=== PATIENT | male | born 1980 | race Caucasian/White ===

== ENCOUNTER 2017-07-16 13:02 | Emergency (ER) | payer OTHER ==
[2017-07-16 13:19] LABS: Absolute Lymphocytes (CBC) 1.5 K/uL (0.7-4.9); Absolute Monocytes 0.6 K/uL (0.1-1.3); Absolute Neutrophil 5.3 K/uL (1.8-8.0); Basophils % 0.1 % (0-1.3); Hematocrit 43.5 % (39.6-49.0); Lymphocytes % 20.9 % (15.3-44.8); MCH 30.4 pg (27.0-35.0); MCV 90.4 fL (80-100); MPV 8.1 fL (7.6-11.3); Monocytes % 7.6 % (3.3-12.3); RBC Red Blood Cell Count 4.81 M/uL (4.33-5.43)
[2017-07-16 13:29] LABS: Potassium 3.4 mEq/L (3.6-5.0)
--- NOTE | 2017-07-16 13:58 | RAD REPORT ---
EXAM DESCRIPTION: CT - Head Brain Wo Cont - 07/16/2017 1:21 pm CLINICAL HISTORY: Headache COMPARISON: None. TECHNIQUE: Computed axial tomography of the head was obtained. IV contrast was not requested. All CT scans are performed using dose optimization technique as appropriate and may include automated exposure control or mA/KV adjustment according to patient size. FINDINGS: An intracranial bleed is not seen . The ventricles are normal in caliber. No extra-axial fluid collection is noted. Fluid within the sinuses/ mastoids is not seen. IMPRESSION: No acute intracranial abnormality is seen. If patient's symptoms persist MRI of the bra in would be recommended.
--- NOTE | 2017-07-16 14:47 | EKG ---
Test Date: 2017-07-16 Test Time: 13:30:17 Roster Clerk: ISH MEASUREMENT RESULTS: Intervals: Rate: 101 MO: 174 QRSD: 108 QT: 356 QTc: 461 [place]: P: 72 MO: 174 QRS: 81 T: 47 INTERPRETIVE STATEMENTS: Sinus tachycardia Otherwise normal ECG Compared to ECG 11/18/2016 13:01:09 ST (T wave) deviation no longer present Electronically Signed On 07-16-17 14:46:39 CDT by Darvin Rondon
--- NOTE | 2017-07-16 15:06 | EDPHYS ---
Physician Documentation [facility] Name: Bud Espinal Age: 37 yrs Sex: Male : 1980 Arrival Date: 07/16/2017 Time: 13:03 Bed 4 Private MD: ED Physician Ochoa Ruelas HPI: 07/16 14:30 This 37 yrs old Male presents to ER via EMS with complaints of Seizure. rn 14:30 The patient presents after having a single isolated seizure. Character of seizure(s): rn Loss of consciousness: it is not known if the patient experienced loss of consciousness, Motor activity: generalized, Circulation: the patient did not experience evidence of pulse disturbance. Seizure onset: just prior to arrival. The patient has experienced similar episodes in the past. The patient has not recently seen a physician. Reports seizure prior to arrival, witnessed, unknown duration, single seizure, has hx of seizures, no trauma, when EMS arrived was in bathroom/shower, reports feeling better with time, felt fine prior to seizure, taking medication but cannot tell me which one. No fever/chest pain/vomiting/diarrhea.. Historical: - Allergies: 13:06 Ceclor; sg - Home Meds: 13:06 Clonazepam Oral as needed [Active]; sg 13:16 levetiracetam oral oral [Active]; sg - PMHx: 13:06 Anxiety; Seizures; sg - PSHx: 13:06 R knee sx; wisdom teeth removal; sg - Immunization history:: Adult Immunizations up to date. - Social history:: Smoking status: Patient/guardian denies using tobacco. - Family history:: not pertinent. - Hospitalizations: : No recent hospitalization is reported. ROS: 14:30 Constitutional: Negative for fever, chills, and weight loss, Eyes: Negative for injury, rn pain, redness, and discharge, Neck: Negative for injury, pain, and swelling, Cardiovascular: Negative for chest pain, palpitations, and edema, Respiratory: Negative for shortness of breath, cough, wheezing, and pleuritic chest pain, Abdomen/GI: Negative for abdominal pain, nausea, vomiting, diarrhea, and constipation, Back: Negative for injury and pain, MS/Extremity: Negative for injury and deformity, Skin: Negative for injury, rash, and discoloration, Neuro: Negative for headache, weakness, numbness, tingling Exam: 14:30 Constitutional: This is a well developed, well nourished patient who is awake, alert, rn and in no acute distress. Head/Face: Normocephalic, atraumatic. Eyes: Pupils equal round and reactive to light, extra-ocular motions intact. Lids and lashes normal. Conjunctiva and sclera are non-icteric and not injected. Cornea within normal limits. Periorbital areas with no swelling, redness, or edema. Neck: Trachea midline, no thyromegaly or masses palpated, and no cervical lymphadenopathy. Supple, full range of motion without nuchal rigidity, or vertebral point tenderness. No Meningismus. Chest/axilla: Normal chest wall appearance and motion. Nontender with no deformity. No lesions are appreciated. Cardiovascular: Regular rate and rhythm with a normal S1 and S2. No gallops, murmurs, or rubs. Normal PMI, no JVD. No pulse deficits. Respiratory: Lungs have equal breath sounds bilaterally, clear to auscultation and percussion. No rales, rhonchi or wheezes noted. No increased work of breathing, no retractions or nasal flaring. Abdomen/GI: Soft, non-tender, with normal bowel sounds. No distension or tympany. No guarding or rebound. No evidence of tenderness throughout. Skin: Warm, dry with normal turgor. Normal color with no rashes, no lesions, and no evidence of cellulitis. MS/ Extremity: Pulses equal, no cyanosis. Neurovascular intact. Full, normal range of motion. Equal circumference. Neuro: Awake, post-ictal, GCS 15, oriented to person, place, time, and situation. Cranial nerves II-XII grossly intact. Motor strength 5/5 in all extremities. Sensory grossly intact. Vital Signs: 13:07 Resp 16 S; Temp 99.5(O); sg 13:07 BP 157 / 85; Pulse 112; Resp 18; Pulse Ox 97% ; Pain 0/10; sv MDM: 13:03 Patient medically screened. rn 15:04 Differential diagnosis: seizure. Data reviewed: vital signs, nurses notes, lab test rn result(s), radiologic studies, CT scan, and as a result, I will. Counseling: I had a detailed discussion with the patient and/or guardian regarding: the historical points, exam findings, and any diagnostic results supporting the discharge/admit diagnosis, lab results, radiology results, the need for outpatient follow up, to return to the emergency department if symptoms worsen or persist or if there are any questions or concerns that arise at home. Response to treatment: the patient's condition has returned to base line, and as a result, I will discharge patient. Special discussion: I discussed with the patient/guardian in detail that at this point there is no indication for admission to the hospital. It is understood, however, that if the symptoms persist or worsen the patient needs to return immediately for re-evaluation. 07/16 13:04 Order name: CBC with Diff rn 07/16 13:04 Order name: Basic Metabolic Panel rn 07/16 13:04 Order name: CT Head Brain wo Cont rn 07/16 13:22 Order name: CBC with Automated Diff; Complete Time: 14:23 EDMS 07/16 13:30 Order name: Basic Metabolic Panel; Complete Time: 14:23 EDMS 07/16 15:13 Order name: Urine Dipstick--Ancillary (enter results) 07/16 13:04 Order name: IV Start; Complete Time: 13:05 rn 07/16 13:04 Order name: Glucose Level; Complete Time: 13:14 rn 07/16 13:04 Order name: EKG; Complete Time: 13:05 rn 07/16 13:04 Order name: EKG - Nurse/Tech; Complete Time: 15:14 rn 07/16 13:58 Order name: CT; Complete Time: 14:23 EDMS Administered Medications: 13:06 Drug: NS 0.9% 1000 ml Route: IV; Rate: 1000 ml; Site: right antecubital; Point of Care Testing: Blood Glucose: 13:14 Blood Glucose: 130 mg/dL; dh3 Ranges: Critical Glucose Levels:Adult <50 mg/dl or >400 mg/dl <40 mg/dl or >180 mg/dl Disposition: 07/16/17 15:05 Discharged to Home. Impression: Epilepsy and recurrent seizures. - Condition is Stable. - Discharge Instructions: Seizure, Adult. - Medication Reconciliation Form, Thank You Letter, Antibiotic Education, Prescription Opioid Use form. - Follow up: Private Physician; When: As needed; Reason: Recheck today's complaints, Re-evaluation by your physician. - Problem is new. - Symptoms have improved. Signatures: Dispatcher [employer] Caroline Trejo RN RN Bernard Avila RN RN sg Nieto, Roman, MD MD rn Page, Corey, PA PA cp
--- NOTE | 2017-07-16 15:06 | ER ---
Nurse's Notes [facility] Name: Bud Espinal Age: 37 yrs Sex: Male : 1980 Arrival Date: 07/16/2017 Time: 13:03 Bed 4 Private MD: Diagnosis: Epilepsy and recurrent seizures Presentation: 07/16 13:08 Presenting complaint: EMS states: pt family reports seizure like activity, has a hx of sg seizures but hasn't had one in what he thinks was 2 months ago, takes two medications for seizures, is AA\\T\\OX4, reports feeling "groggy". Transition of care: patient was not received from another setting of care. Onset of symptoms was July 16, 2017. Care prior to arrival: Medication(s) given: Normal saline infusion, 500 mL, IV initiated. 18 GA, in the right antecubital area. Activity prior to arrival: seizure. 13:08 Method Of Arrival: EMS: [facility] sg 13:08 Acuity: HEBER 3 sg Historical: - Allergies: 13:06 Ceclor; sg - Home Meds: 13:06 Clonazepam Oral as needed [Active]; sg 13:16 levetiracetam oral oral [Active]; sg - PMHx: 13:06 Anxiety; Seizures; sg - PSHx: 13:06 R knee sx; wisdom teeth removal; sg - Immunization history:: Adult Immunizations up to date. - Social history:: Smoking status: Patient/guardian denies using tobacco. - Family history:: not pertinent. - Hospitalizations: : No recent hospitalization is reported. Screenin:08 Abuse screen: Denies threats or abuse. Denies injuries from another. Nutritional sv screening: No deficits noted. Tuberculosis screening: No symptoms or risk factors identified. Fall Risk No fall in past 12 months (0 pts). Secondary diagnosis (15 points) seizures, IV access (20 points). Ambulatory Aid- None/Bed Rest/Nurse Assist (0 pts). Gait- Normal/Bed Rest/Wheelchair (0 pts) Mental Status- Oriented to own ability (0 pts). Total Barboza Fall Scale indicates Low Risk Score (25-44 pts). Fall prevention measures have been instituted. Side Rails Up X 2 Placed close to Nursing Station Frequent Obs/Assesments occuring As available Patient and Family Educated on Fall Prevention Program and strategies. Assessment: 13:16 General: Appears in no apparent distress. comfortable, well groomed, well developed, sg well nourished, Behavior is calm, cooperative, appropriate for age. Pain: Denies pain. Neuro: Level of Consciousness is awake, alert, obeys commands, Oriented to person, place, time, Small Offset Printer are equal bilaterally Moves all extremities. Speech is normal, Facial symmetry appears normal, Reports "groggy". Cardiovascular: Heart tones S1 S2 present Capillary refill is brisk in bilateral fingers Patient's skin is warm and dry. Respiratory: Airway is patent Respiratory effort is even, unlabored, Respiratory pattern is regular, symmetrical. GI: Abdomen is flat, non-distended, Bowel sounds present X 4 quads. : No signs and/or symptoms were reported regarding the genitourinary system. EENT: No signs and/or symptoms were reported regarding the EENT system. Derm: Skin is intact, is healthy with good turgor, Skin is dry, Skin is red, Skin temperature is warm. Musculoskeletal: Circulation, motion, and sensation intact. Range of motion: intact in all extremities. Vital Signs: 13:07 Resp 16 S; Temp 99.5(O); sg 13:07 BP 157 / 85; Pulse 112; Resp 18; Pulse Ox 97% ; Pain 0/10; sv ED Course: 13:03 Patient arrived in ED. rn 13:03 Ochoa Ruelas MD is Attending Physician. rn 13:05 Bernard Patel, DEBORAH is Primary Nurse. sg 13:07 Arm band placed on. sg 13:08 Patient has correct armband on for positive identification. Bed in low position. Call sv light in reach. Side rails up X2. Seizure precautions initiated. Pulse ox on. NIBP on. Head of bed elevated. 13:11 Triage completed. sg 13:14 Initial lab(s) drawn, by me, sent to lab. dh3 13:[address] via stretcher. sv 13:[address] via stretcher. Patient moved to radiology. jg1 13:26 Patient moved back from CT. sg Administered Medications: 13:06 Drug: NS 0.9% 1000 ml Route: IV; Rate: 1000 ml; Site: right antecubital; sv Point of Care Testing: Blood Glucose: 13:14 Blood Glucose: 130 mg/dL; dh3 Ranges: Outcome: 15:05 Discharge ordered by MD. bacon 15:27 Patient left the ED. cp Signatures: Caroline Lin RN RN sv Gay, Steven, RN RN sg Garcia, Jessica jg1 Nieto, Roman, MD MD rn Page, Corey, PA PA cp Herrera, Deanna 3
[2017-07-16 15:52] LABS: Urine Blood NEGATIVE (NEG); Urine Glucose NEGATIVE (NEG); Urine Protein NEGATIVE (NEG)
== END 2017-07-16 15:27 | disposition home or self-care (01) ==
LOC: ER 13:02
DX: G40.909 Epilepsy, unspecified, not intractable, without status epilepticus (principal); F41.9 Anxiety disorder, unspecified
CPT/HCPCS: 36415; 70450; 80048; 81003; 82962; 85025; 93005; 99284

== ENCOUNTER 2017-12-14 12:17 | Emergency (ER) | payer OTHER ==
[2017-12-14] MEDS ORDERED: ONDANSETRON 4 MG/2 ML VIAL ONE (14:07)
[2017-12-14] MEDS ORDERED: FENTANYL CITR 100 MCG/2 ML ONE ×2 (14:07→17:00)
[2017-12-14] MEDS ORDERED: MUPIROCIN 2% OINT 22GM TUBE TOP ONE (14:15)
[2017-12-14] MEDS ORDERED: TETANUS & DIPHTHERIA TOX,ADULT 0.5 ML VIAL ONE (14:15)
[2017-12-14] MEDS ORDERED: NA CHLORIDE 0.9% 1,000 ML ONE (14:16)
[2017-12-14 14:19] LABS: Absolute Lymphocytes (CBC) 0.7 K/uL (0.7-4.9); Absolute Monocytes 0.3 K/uL (0.1-1.3); Absolute Neutrophil 2.6 K/uL (1.8-8.0); Basophils % 0.9 % (0-1.3); Hematocrit 41.9 % (39.6-49.0); Lymphocytes % 19.4 % (15.3-44.8); MCH 32.5 pg (27.0-35.0); MCV 94.6 fL (80-100); MPV 7.9 fL (7.6-11.3); Monocytes % 9.4 % (3.3-12.3); RBC Red Blood Cell Count 4.43 M/uL (4.33-5.43)
[2017-12-14 14:33] LABS: ALT/SGPT 29 U/L (12-78); AST/SGOT 44 U/L (15-37); Albumin 4.1 g/dL (3.4-5.0); Alkaline Phosphatase 56 U/L (45-117); BUN Blood Urea Nitrogen 8 mg/dL (7-18); Bicarbonate 30 mmol/L (21-32); Bilirubin Total 0.6 mg/dL (0.2-1.0); Glucose Level 100 mg/dL (74-106); Potassium 4.1 mmol/L (3.5-5.1); Protein, Total 7.7 g/dL (6.4-8.2); Sodium Level 139 mmol/L (136-145)
--- NOTE | 2017-12-14 15:16 | RAD REPORT ---
EXAM DESCRIPTION: RAD - Ankle Right 3 View - 12/14/2017 2:34 pm CLINICAL HISTORY: Ankle pain, history of fracture COMPARISON: None. FINDINGS: Prominent soft tissue swelling surrounds the ankle. History indicates ankle fracture will not otherwise specified as to date of recurrence. No gross fracture deformity of the distal tibia or fibula seen. There is irregular bone along the medial and posterior margin of the talus. This would b e an unusual location but fracture is not excluded. No prior imaging of this region. No plantar or Achilles spur. An acute calcaneus process is not suspected. No large joint effusion. No foreign body. IMPRESSION: Suspected fracture along the posteromedial margin of the talus. Fracture is difficult to fully evaluate and is poorly seen on the frontal and oblique projections. As clinical findings warrant, thin section CT imaging of the ankle could be performed for further asses sment. Soft tissue swelling surrounding the ankle joint.
--- NOTE | 2017-12-14 15:18 | RAD REPORT ---
EXAM DESCRIPTION: RAD - Foot Right 3 View - 12/14/2017 2:34 pm CLINICAL HISTORY: Ankle pain, history of fracture not otherwise specified. COMPARISON: None. FINDINGS: No fracture, dislocation or periosteal reaction involving the bones of the foot. Posterior talus finding is detailed on the ankle report. No plantar spur. Calcifications along the dorsal mildred in anterior talus could be related to soft tissue injury or possible bone avulsion. No air or foreign body in the soft tissues. IMPRESSION: Posterior talus abnormality detailed on ankle report. There may be additional cortical d isruption along the anterior dorsal margin of the calcaneus. Prominent soft tissue swelling over the dorsum of the foot. No other acute bone finding.
--- NOTE | 2017-12-14 15:19 | RAD REPORT ---
EXAM DESCRIPTION: VAS - Extremity Venous Uni Ltd - 12/14/2017 3:13 pm CLINICAL HISTORY: Leg pain and swelling, recent fracture COMPARISON: None. TECHNIQUE: Real-time sonographic evaluation of the right lower extremity deep venous systems was per formed. FINDINGS: Normal compressibility, flow augmentation, phasic flow and spontaneous flow are identified in the right lower extremity common femoral, superficial femoral, popliteal and posterior tibial vei ns. No intraluminal filling defects seen. IMPRESSION: No DVT in the right lower extremity.
--- NOTE | 2017-12-14 15:32 | RAD REPORT ---
EXAM DESCRIPTION: RAD - Tib Fib Right - 12/14/2017 2:34 pm CLINICAL HISTORY: Leg pain, history of fracture date unknown COMPARISON: None. FINDINGS: No fracture is identified. There is no dislocation or periosteal reaction noted. No acute or suspicious bony finding. Posterior talus finding is detailed on separate ankle report. No foreign body seen. There is soft tissue swelling around the ankle. IMPRESSION: No acute tib-fib finding. Soft tissue swelling around the ankle. Posterior talus finding is separately detailed.
--- NOTE | 2017-12-14 16:21 | RAD REPORT ---
EXAM DESCRIPTION: CT - Ankle Right Wo Con - 12/14/2017 4:06 pm CLINICAL HISTORY: pain COMPARISON: Tib Fib Right dated 12/14/2017; Foot Right 3 View dated 12/14/2017; Ankle Right 3 View benji ed 12/14/2017 FINDINGS: A fracture is seen involving the posterior aspect of the talus medially the fracture exten ds to minimal with the articular surface of the posterior subtalar joint. The bony fragment in the ta anny is 1-2 mm displaced with mild comminution along the fracture site. Subtalar dislocation is not se en. In addition, there are small avulsion fracture fragments noted involving the anterior process of the calcaneus, the dorsal aspect of the talar neck and the distal medial and lateral malleoli. Significan t soft tissue swelling and edema about the ankle is present. IMPRESSION: Acute ankle fracture as detailed above.
--- NOTE | 2017-12-14 16:56 | EDPHYS ---
Physician Documentation [facility] Name: Bud Espinal Age: 37 yrs Sex: Male : 1980 Arrival Date: 12/14/2017 Time: 12:19 Bed 6 Private MD: Pio Ortiz S ED Physician Robin Raman HPI: 12/14 13:45 This 37 yrs old Male presents to ER via Wheelchair with complaints of Wound rebecca Check. 13:46 Patient presents to ED for recheck of: fracture 5 days ago. The affected area is on the rebecca lateral aspect of right calf, right ankle, lateral aspect of right foot, right Achilles, right heel, medial aspect of right calf, medial aspect of right foot, right guzman, anterior aspect of right ankle and dorsum of right foot. Previous treatment: The patient was initially treated 5 day(s) ago, the care was rendered at [facility]. Progress: The patient reports decreased. The patient presents with decreased range of motion, an injury, pain, swelling, tenderness. Context: resulted from a direct blow, the patient is not able to bear weight, the patient is not able to ambulate, Problem is a result from a previous injury: No. Historical: - Allergies: 12:47 Ceclor; ph - Home Meds: 12:47 levetiracetam Oral [Active]; Clonazepam Oral as needed [Active]; ph - PMHx: 12:47 Anxiety; Seizures; ph - PSHx: 12:47 R knee sx; wisdom teeth removal; ph - Immunization history:: Adult Immunizations unknown. - Social history:: Smoking status: Patient/guardian denies using tobacco. - Ebola Screening: : No symptoms or risks identified at this time. - Family history:: not pertinent. ROS: 13:46 Constitutional: Negative for fever, chills, and weight loss, Eyes: Negative for injury, rebecca pain, redness, and discharge, ENT: Negative for injury, pain, and discharge, Neck: Negative for injury, pain, and swelling, Cardiovascular: Negative for chest pain, palpitations, and edema, Respiratory: Negative for shortness of breath, cough, wheezing, and pleuritic chest pain, Abdomen/GI: Negative for abdominal pain, nausea, vomiting, diarrhea, and constipation, Back: Negative for injury and pain, : Negative for injury, bleeding, discharge, and swelling, Skin: Negative for injury, rash, and discoloration, Neuro: Negative for headache, weakness, numbness, tingling, and seizure, Psych: Negative for depression, anxiety, suicide ideation, homicidal ideation, and hallucinations, Allergy/Immunology: Negative for hives, rash, and allergies, Endocrine: Negative for neck swelling, polydipsia, polyuria, polyphagia, and marked weight changes. 13:46 MS/extremity: Positive for pain, swelling, tenderness, warmth, of the right ankle, lateral aspect of right foot, medial aspect of right foot, right guzman, anterior aspect of right ankle and dorsum of right foot. Exam: 13:46 Constitutional: This is a well developed, well nourished patient who is awake, alert, rebecca and in no acute distress. Head/Face: Normocephalic, atraumatic. Eyes: Pupils equal round and reactive to light, extra-ocular motions intact. Lids and lashes normal. Conjunctiva and sclera are non-icteric and not injected. Cornea within normal limits. Periorbital areas with no swelling, redness, or edema. ENT: Nares patent. No nasal discharge, no septal abnormalities noted. Tympanic membranes are normal and external auditory canals are clear. Oropharynx with no redness, swelling, or masses, exudates, or evidence of obstruction, uvula midline. Mucous membranes moist. Neck: Trachea midline, no thyromegaly or masses palpated, and no cervical lymphadenopathy. Supple, full range of motion without nuchal rigidity, or vertebral point tenderness. No Meningismus. Chest/axilla: Normal chest wall appearance and motion. Nontender with no deformity. No lesions are appreciated. Cardiovascular: Regular rate and rhythm with a normal S1 and S2. No gallops, murmurs, or rubs. Normal PMI, no JVD. No pulse deficits. Respiratory: Lungs have equal breath sounds bilaterally, clear to auscultation and percussion. No rales, rhonchi or wheezes noted. No increased work of breathing, no retractions or nasal flaring. Abdomen/GI: Soft, non-tender, with normal bowel sounds. No distension or tympany. No guarding or rebound. No evidence of tenderness throughout. Back: No spinal tenderness. No costovertebral tenderness. Full range of motion. Male : Normal genitalia with no discharge or lesions. Skin: Warm, dry with normal turgor. Normal color with no rashes, no lesions, and no evidence of cellulitis. Neuro: Awake and alert, GCS 15, oriented to person, place, time, and situation. Cranial nerves II-XII grossly intact. Motor strength 5/5 in all extremities. Sensory grossly intact. Cerebellar exam normal. Normal gait. Psych: Awake, alert, with orientation to person, place and time. Behavior, mood, and affect are within normal limits. 13:46 Musculoskeletal/extremity: ROM: limited active range of motion due to pain, limited passive range of motion due to pain, in the right ankle, lateral aspect of right foot, medial aspect of right foot, anterior aspect of right ankle and dorsum of right foot, Pulses: noted to be 4+ in the right posterior tibial artery and right dorsalis pedis artery, Sensation intact. Compartment Syndrome exam of affected extremity: is normal. DVT Exam: negative Homans' sign noted on exam, no appreciated bluish discoloration, pain, swelling, tenderness, erythema, increased warmth, that is moderate, of the right leg, of the right ankle, lateral aspect of right foot, anterior aspect of right ankle and dorsum of right foot. Vital Signs: 12:47 BP 140 / 92; Pulse 72; Resp 18; Temp 98.5; Pulse Ox 99% on R/A; Weight 81.65 kg; Height ph 5 ft. 9 in. (175.26 cm); Pain 8/10; 14:00 BP 122 / 76; Pulse 67; Resp 16; Pulse Ox 100% on R/A; hb 15:00 BP 128 / 79; Pulse 69; Resp 15; Pulse Ox 100% on R/A; hb 16:00 BP 123 / 74; Pulse 64; Resp 15; Pulse Ox 100% on R/A; hb 17:00 BP 118 / 68; Pulse 62; Resp 15; Pulse Ox 100% on R/A; hb 17:34 BP 122 / 76; Pulse 64; Resp 18; Temp 97.9; Pulse Ox 100% on R/A; ph 12:47 Body Mass Index 26.58 (81.65 kg, 175.26 cm) ph MDM: 12:[address] [facility] 13:50 Data reviewed: vital signs, nurses notes, lab test result(s), radiologic studies. [facility] 12/14 13:45 Order name: CBC with Diff; Complete Time: 15:40 [facility] 12/14 13:45 Order name: Comprehensive Metabolic Panel; Complete Time: 15:40 [facility] 12/14 13:45 Order name: Foot Right 3 View XRAY; Complete Time: 15:40 [facility] 12/14 13:45 Order name: Ankle Right 3 View XRAY; Complete Time: 15:40 [facility] 12/14 13:45 Order name: Tib Fib Right XRAY; Complete Time: 15:40 [facility] 12/14 14:19 Order name: US Extremity Venous Unilateral Ltd; Complete Time: 15:40 [facility] 12/14 13:45 Order name: Wound Care: bactroban oint; Complete Time: 14:19 [facility] 12/14 15:46 Order name: Ankle Right Wo Con; Complete Time: 16:50 EDMS 12/14 15:57 Order name: Ankle Splint: Orthoglass: Posterior; Complete Time: 16:58 [facility] 12/14 15:57 Order name: Crutches; Complete Time: 16:58 [facility] 12/14 15:57 Order name: Ice pack; Complete Time: 16:28 [facility] Administered Medications: 14:09 Drug: fentaNYL (PF) 25 mcg Route: IVP; Site: right antecubital; hb 14:09 Drug: Zofran 4 mg Route: IVP; Site: right antecubital; hb 14:19 Drug: NS 0.9% 1000 ml Route: IV; Rate: 1 bolus; Site: right antecubital; hb 14:19 Drug: Tetanus-Diphtheria Toxoid Adult 0.5 ml {Bran Mixer: [employer]. Exp: 01/13/2020. Lot #: [id number]. } Route: IM; Site: right deltoid; 15:00 Drug: fentaNYL (PF) 25 mcg Route: IVP; Site: right antecubital; sg 16:58 Drug: fentaNYL (PF) 25 mcg Route: IVP; Site: right antecubital; hb Disposition: 12/14/17 16:55 Discharged to Home. Impression: Displaced avulsion fracture (chip fracture) of right talus - calcaneus and distal medial and lateral malleoli avulsion fractures, Dislocation of right ankle joint - reduced 5 days ago. - Condition is Stable. - Discharge Instructions: Ankle Dislocation, Ankle Fracture, Ankle Dislocation, Ybor-ll-Cgbu, Ankle Pain. - Prescriptions for Ibuprofen 600 mg Oral Tablet - take 1 tablet by ORAL route every 8 hours As needed take with food; 21 tablet. Tylenol- Codeine #3 300-30 mg Oral Tablet - take 2 tablet by ORAL route every 6 hours As needed; 30 tablet. - Medication Reconciliation Form, Thank You Letter, Antibiotic Education, Prescription Opioid Use form. - Follow up: Pio Ortiz; When: 2 - 3 days; Reason: Recheck today's complaints, Continuance of care, Re-evaluation by your physician. Follow up: Sony Allen; When: 2 - 3 days; Reason: Recheck today's complaints, Re-evaluation by your physician. - Problem is new. - Symptoms have improved. Signatures: Dispatcher [employer] EDBernard Jones RN RN Robin Issa MD MD cha Hall, Patricia, RN RN ph Baxter, Heather, RN RN Corrections: (The following items were deleted from the chart) 17:35 16:55 12/14/2017 16:55 Discharged to Home. Impression: Displaced avulsion fracture ph (chip fracture) of right talus - calcaneus and distal medial and lateral malleoli avulsion fractures; Dislocation of right ankle joint - reduced 5 days ago. Condition is Stable. Discharge Instructions: Ankle Dislocation, Ankle Fracture, Ankle Dislocation, [id number], Ankle Pain. Prescriptions for Ibuprofen 600 mg Oral Tablet - take 1 tablet by ORAL route every 8 hours As needed take with food; 21 tablet, Tylenol-Codeine #3 300-30 mg Oral Tablet - take 2 tablet by ORAL route every 6 hours As needed; 30 tablet. and Forms are Medication Reconciliation Form, Thank You Letter, Antibiotic Education, Prescription Opioid Use. Follow up: Pio Ortiz; When: 2 - 3 days; Reason: Recheck today's complaints, Continuance of care, Re-evaluation by your physician. Follow up: Sony Allen; When: 2 - 3 days; Reason: Recheck today's complaints, Re-evaluation by your physician. Problem is new. Symptoms have improved. rebecca
--- NOTE | 2017-12-14 16:56 | ER ---
Nurse's Notes [facility] Name: Bud Espinal Age: 37 yrs Sex: Male : 1980 Arrival Date: 12/14/2017 Time: 12:19 Bed 6 Private MD: Pio Ortiz S Diagnosis: Displaced avulsion fracture (chip fracture) of right talus-calcaneus and distal medial and lateral malleoli avulsion fractures;Dislocation of right ankle joint-reduced 5 days ago Presentation: 12/14 12:40 Presenting complaint: Patient states: " I broke my ankle on when I was in [place]. I have a follow up appointment tomorrow but when I woke up this morning it was swollen up like a watermelon so I figured I better come here." Splint/cast noted to R foot w/ swelling present, cast has been cut to relieve pressure/swelling, cap refill < 3 sec. Transition of care: patient was not received from another setting of care. Onset of symptoms was December 14, 2017. Risk Assessment: Do you want to hurt yourself or someone else? Patient reports no desire to harm self or others. Initial Sepsis Screen: Does the patient meet any 2 criteria? No. Patient's initial sepsis screen is negative. Does the patient have a suspected source of infection? No. Patient's initial sepsis screen is negative. Care prior to arrival: None. 12:40 Method Of Arrival: Wheelchair 12:40 Acuity: HEBER 3 ph Historical: - Allergies: 12:47 Ceclor; ph - Home Meds: 12:47 levetiracetam Oral [Active]; Clonazepam Oral as needed [Active]; ph - PMHx: 12:47 Anxiety; Seizures; ph - PSHx: 12:47 R knee sx; wisdom teeth removal; ph - Immunization history:: Adult Immunizations unknown. - Social history:: Smoking status: Patient/guardian denies using tobacco. - Ebola Screening: : No symptoms or risks identified at this time. - Family history:: not pertinent. Screenin:00 Abuse screen: Denies threats or abuse. Denies injuries from another. Nutritional hb screening: No deficits noted. Tuberculosis screening: No symptoms or risk factors identified. Fall Risk Total Barboza Fall Scale indicates High Risk Score (45 or more points). Fall prevention measures have been instituted. Side Rails Up X 2 Frequent Obs/Assessments Occuring As available patient and family educated on Fall Prevention Program and Strategies. Assessment: 13:10 General: Appears in no apparent distress. uncomfortable, Behavior is calm, cooperative. hb Pain: Pain currently is 10 out of 10 on a pain scale. Neuro: Level of Consciousness is awake, alert, obeys commands, Oriented to person, place, time, situation. Cardiovascular: Capillary refill < 3 seconds Patient's skin is warm and dry. Respiratory: Airway is patent Trachea midline Respiratory effort is even, unlabored, Respiratory pattern is regular, symmetrical. GI: No signs and/or symptoms were reported involving the gastrointestinal system. : No signs and/or symptoms were reported regarding the genitourinary system. EENT: No signs and/or symptoms were reported regarding the EENT system. Derm: Skin is healthy with good turgor. Musculoskeletal: swelling and redness to left foot. 14:00 Reassessment: Patient appears in no apparent distress at this time. No changes from hb previously documented assessment. Patient and/or family updated on plan of care and expected duration. Pain level reassessed. Patient is alert, oriented x 3, equal unlabored respirations, skin warm/dry/pink. 15:00 Reassessment: Patient appears in no apparent distress at this time. No changes from hb previously documented assessment. Patient and/or family updated on plan of care and expected duration. Pain level reassessed. Patient is alert, oriented x 3, equal unlabored respirations, skin warm/dry/pink. 16:00 Reassessment: Patient appears in no apparent distress at this time. No changes from hb previously documented assessment. Patient and/or family updated on plan of care and expected duration. Pain level reassessed. Patient is alert, oriented x 3, equal unlabored respirations, skin warm/dry/pink. 17:00 Reassessment: Patient appears in no apparent distress at this time. No changes from hb previously documented assessment. Patient and/or family updated on plan of care and expected duration. Pain level reassessed. Patient is alert, oriented x 3, equal unlabored respirations, skin warm/dry/pink. Vital Signs: 12:47 BP 140 / 92; Pulse 72; Resp 18; Temp 98.5; Pulse Ox 99% on R/A; Weight 81.65 kg; Height ph 5 ft. 9 in. (175.26 cm); Pain 8/10; 14:00 BP 122 / 76; Pulse 67; Resp 16; Pulse Ox 100% on R/A; hb 15:00 BP 128 / 79; Pulse 69; Resp 15; Pulse Ox 100% on R/A; hb 16:00 BP 123 / 74; Pulse 64; Resp 15; Pulse Ox 100% on R/A; hb 17:00 BP 118 / 68; Pulse 62; Resp 15; Pulse Ox 100% on R/A; hb 17:34 BP 122 / 76; Pulse 64; Resp 18; Temp 97.9; Pulse Ox 100% on R/A; ph 12:47 Body Mass Index 26.58 (81.65 kg, 175.26 cm) ph ED Course: 12:19 Patient arrived in ED. sb2 12:20 Pio Ortiz MD is Private Physician. sb2 12:46 Triage completed. ph 12:48 Arm band placed on. ph 12:52 Robin Raman MD is Attending Physician. rebecca 13:30 Patient has correct armband on for positive identification. Bed in low position. Call hb light in reach. Side rails up X 1. 14:23 Gissel Levin, DEBORAH is Primary Nurse. hb 14:24 X-ray completed. Portable x-ray completed in exam room. Patient tolerated procedure jb2 well. 14:25 Foot Right 3 View XRAY In Process Unspecified. EDMS 14:25 Ankle Right 3 View XRAY In Process Unspecified. EDMS 14:25 Tib Fib Right XRAY In Process Unspecified. EDMS 15:02 US Extremity Venous Unilateral Ltd In Process Unspecified. EDMS 15:03 Ultrasound completed. Patient tolerated well. lc3 16:06 Ankle Right Wo Con In Process Unspecified. EDMS 16:52 Pio Ortiz MD is Referral Physician. rebecca 16:52 Sony Allen MD is Referral Physician. rebecca 17:00 Orthoglass splint: Posterior short lleg splint applied on right leg. em1 17:34 No provider procedures requiring assistance completed. IV discontinued, intact, ph bleeding controlled, No redness/swelling at site. Pressure dressing applied. Administered Medications: 14:09 Drug: fentaNYL (PF) 25 mcg Route: IVP; Site: right antecubital; hb 14:09 Drug: Zofran 4 mg Route: IVP; Site: right antecubital; hb 14:19 Drug: NS 0.9% 1000 ml Route: IV; Rate: 1 bolus; Site: right antecubital; hb 14:19 Drug: Tetanus-Diphtheria Toxoid Adult 0.5 ml {Heel Trimmer: [employer]. Exp: hb 01/13/2020. Lot #: [id number]. } Route: IM; Site: right deltoid; 15:00 Drug: fentaNYL (PF) 25 mcg Route: IVP; Site: right antecubital; sg 16:58 Drug: fentaNYL (PF) 25 mcg Route: IVP; Site: right antecubital; hb Outcome: 16:55 Discharge ordered by . [facility] 17:34 Discharged to home ambulatory, with crutches, with friend. ph 17:34 Condition: good 17:34 Discharge instructions given to patient, Instructed on discharge instructions, follow up and referral plans. medication usage, Demonstrated understanding of instructions, follow-up care, medications, Prescriptions given X 2. 17:35 Patient left the ED. ph Signatures: Dispatcher [employer] EDMS Bernard Patel, RN Robin Azevedo MD MD cha Buechter, Jesse jb2 Martinez, Eric em1 Afua Aldana RN RN Jasson Hare Heather, RN RN Trini Martinez2
== END 2017-12-14 17:35 | disposition home or self-care (01) ==
LOC: ER 12:17
PROC: 2W3QX1Z Immobilization of Right Lower Leg using Splint (ICD-10-PCS; principal; 2017-12-14)
DX: S92.151A Displaced avulsion fracture (chip fracture) of right talus, initial encounter for closed fracture (principal); S82.61XA Displaced fracture of lateral malleolus of right fibula, initial encounter for closed fracture; S82.51XA Displaced fracture of medial malleolus of right tibia, initial encounter for closed fracture; W22.8XXA Striking against or struck by other objects, initial encounter; Y93.9 Activity, unspecified; Y92.9 Unspecified place or not applicable; Z88.1 Allergy status to other antibiotic agents; Z23 Encounter for immunization; F41.9 Anxiety disorder, unspecified; G40.909 Epilepsy, unspecified, not intractable, without status epilepticus
CPT/HCPCS: 36415; 73700; 80053; 85025; 90714; 93971; 96374; 96375; 99284; J2405; J3010; J7030

== ENCOUNTER 2019-08-22 17:11 | Observation (INO) | payer OTHER ==
--- OUTSIDE RECORDS SUMMARY | 2019-08-22 17:13 | XMS REPORT | Summary of Care ---
:1980 Author Organization [facility] Address [address] [place] [id number] Care Team Providers Name Role Phone MD Angel Primary Care Provider Reason for Visit Reason Comments Refill Request Encounter Details Date Type Department Care Team Description 06/05/2019 Refill [facility] Pio Umaña MD Refill Request - [address] [address] [place] [address] [phone] Allergies Active Allergy Reactions Severity Noted Date Comments Cefaclor Unknown - See comments 06/20/2015 6MO documented as of this encounter (statuses as of 06/05/2019) Medications Medication Sig Dispensed Refills Start Date End Date Status fluconazole Take one and 2 tablet 0 08/13/2016 Acti ve (DIFLUCAN) 150 mg repeat in 5 tablet days oxyCODONE C.R. 10 0 04/15/2017 A ctive mg 12h tablet oxyCODONE-acetamino 0 04/15/2017 Active phen 5-325 mg per tablet levETIRAcetam 500 TK 2 TS PO 6 05/02/2017 Active mg 24 hr tablet QD terbinafine HCl 250 Take 1 30 tablet 0 05/13/2017 Active mg tablet tablet by mouth daily. XTAMPZA ER 27 mg TAKE 1 0 12/29/2018 Ac tive CSpT CAPSULE BY MOUTH WITH FOOD EVERY 12 HOURS FOR 30 DAYS clonazePAM 1 mg Take 1 60 tablet 5 02/09/2019 Act awa tabletIndications: tablet by Anxiety mouth 2 (two) times daily. finasteride 5 mg Take 1 30 tablet 5 05/04/2019 Ac tive tabletIndications: tablet by Alopecia of scalp mouth daily. 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 documented as of this encounter Last Filed Vital Signs Not on filedocumented in this encounter Plan of Treatment Date Type Specialty Care Team Description 07/05/2019 Office Visit Family Medicine Pio Ortiz MD [address] [place] [address] [phone] Health Maintenance Due Date Last Done Comments VARICELLA VACCINES (1 of 2 - 1983 2-dose childhood series) DTaP,Tdap,and Td Vaccines ( - 1993 Tdap) INFLUENZA VACCINE (#1) 2018 PNEUMOCOCCAL 0-64 YEARS COMBINED Aged Out No longer eligible based on SERIES patient's age to complete this topic documented as of this encounter Results Not on filedocumented in this encounter Visit Diagnoses Diagnosis Attention deficit disorder (ADD) without hyperactivity documented in this encounter Insurance Payer Benefit Plan / Group Subscriber ID Effective Dates Phone Address Type CAPRI FAROOQ II [id number] 2017-Present H MO/PPO/POS documented as of this encounter
--- OUTSIDE RECORDS SUMMARY | 2019-08-22 17:13 | XMS REPORT | Summary of Care ---
:1980 Author Organization [facility] Address [address] [place] [address] Care Team Providers Name Role Phone MD Angel Primary Care Provider Reason for Visit Reason Comments Follow-up ADD Refill Request Encounter Details Date Type Department Care Team Description 07/05/2019 Office Visit [facility] Family Pio Ortiz Atten tion deficit disorder (ADD) without hyperactivity (Primary Dx); Medicine - [place] MD Anxiety [address] [place] [phone] Allergies Active Allergy Reactions Severity Noted Date Comments Cefaclor Unknown - See comments 06/20/2015 6MO documented as of this encounter (statuses as of 07/05/2019) Medications Medication Sig Dispensed Refills Start Date End Date Status fluconazole Take one and 2 tablet 0 08/13/2016 Acti ve (DIFLUCAN) 150 mg repeat in 5 tablet days oxyCODONE C.R. 10 0 04/15/2017 A ctive mg 12h tablet oxyCODONE-acetamin 0 04/15/2017 Active ophen 5-325 mg per tablet levETIRAcetam 500 TK 2 TS PO 6 05/02/2017 Active mg 24 hr tablet QD terbinafine HCl Take 1 30 tablet 0 05/13/2017 Act awa 250 mg tablet tablet by mouth daily. XTAMPZA ER 27 mg TAKE 1 0 12/29/2018 Ac tive CSpT CAPSULE BY MOUTH WITH FOOD EVERY 12 HOURS FOR 30 DAYS finasteride 5 mg Take 1 30 tablet 5 05/04/2019 Ac tive tabletIndications: tablet by Alopecia of scalp mouth daily. dextroamphetamine- Take 1 60 tablet 0 06/05/2019 Active amphetamine 20 mg tablet by tabletIndications: mouth 2 Attention deficit (two) times disorder (ADD) daily. without hyperactivity amphetamine-dextro Take 1 60 capsule 0 07/05/2019 Active amphetamine 25 mg capsule by 24 hr mouth every capsuleIndications morning. : Attention deficit disorder (ADD) without hyperactivity clonazePAM 1 mg Take 1 60 tablet 5 07/05/2019 Act awa tabletIndications: tablet by Anxiety mouth 2 (two) times daily. clonazePAM 1 mg Take 1 60 tablet 5 02/09/2019 Dis continued tabletIndications: tablet by 0 ( Reorder) Anxiety mouth 2 (two) times daily. documented as of this encounter (statuses as of 07/05/2019) Active Problems Problem Noted Date Anxiety 06/20/2015 Low back pain 06/20/2015 documented as of this encounter (statuses as of 07/05/2019) Social History Tobacco Use Types Packs/Day Years Used Date Never Smoker Smokeless Tobacco: Never Used Sex Assigned at Date Recorded Not on file Job Start Date Occupation Industry Not on file Not on file Not on file Travel History Travel Start Travel End No recent travel history available. 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 Here for routine f/u Allergies Bud is allergic to ceclor [cefaclor]. Medications Outpatient Medications Prior to Visit Medication Sig Dispense Refill dextroamphetamine-amphetamine 20 mg tablet Take 1 tablet by mouth 2 (two) times daily. 60 tablet0 finasteride 5 mg tablet Take 1 tablet by mouth daily. 30 tablet 5 clonazePAM 1 mg tablet Take 1 tablet by mouth 2 (two) times daily. 60 tablet 5 XTAMPZA ER 27 mg CSpT TAKE 1 CAPSULE BY MOUTH WITH FOOD EVERY 12 HOURS FOR 30 DAYS 0 levETIRAcetam 500 mg 24 hr tablet TK 2 TS PO QD 6 oxyCODONE C.R. 10 mg 12h tablet oxyCODONE-acetaminophen 5-325 mg per tablet terbinafine HCl 250 mg tablet Take 1 tablet by mouth daily. 30 tablet 0 fluconazole (DIFLUCAN) 150 mg tablet Take one and repeat in 5 days 2 tablet 0 No facility-administered medications prior to visit. Histories No past medical history on file. No past surgical history on file. Social History Socioeconomic History Marital status: Spouse name: Not on file Number of children: Not on file Years of education: Not on file Highest education level: Not on file Occupational History Not on file Social Needs Financial resource strain: Not on file Food insecurity: Worry: Not on file Inability: Not on file Transportation needs: Medical: Not on file Non-medical: Not on file Tobacco Use Smoking status: Never Smoker Smokeless tobacco: Never Used Substance and Sexual Activity Alcohol use: Not on file Drug use: Not on file Sexual activity: Not on file Lifestyle Physical activity: Days per week: Not on file Minutes per session: Not on file Stress: Not on file Relationships Social connections: Talks on phone: Not on file Gets together: Not on file Attends quaker service: Not on file Active member of club or organization: Not on file Attends meetings of clubs or organizations: Not on file Relationship status: Not on file Intimate partner violence: Fear of current or ex partner: Not on file Emotionally abused: Not on file Physically abused: Not on file Forced sexual activity: Not on file Other Topics Concern Not on file Social History Narrative Not on file No family history on file. Review of Systems Vital Signs BP 138/90 | Wt 176 lb (79.8 kg) | BMI 25.99 kg/m Physical Exam Constitutional: He is oriented to person, place, and time. He appears well- developed and well-nourished. HENT: Head: Normocephalic and atraumatic. Cardiovascular: Normal rate, regular rhythm and normal heart sounds. Pulmonary/Chest: Effort normal. Abdominal: Soft. Musculoskeletal: Normal range of motion. Neurological: He is alert and oriented to person, place, and time. Skin: Skin is warm. Vitals reviewed. Assessment/Plan ADD, medication refill Anxiety, medication refill This visit did not involve counseling and coordination that comprised more than 50% of the visit time. documented in this encounter Plan of Treatment Date Type Specialty Care Team Description 10/05/2019 Office Visit Family Medicine Pio Ortiz MD [address] [place] [phone] Health Maintenance Due Date Last Done Comments VARICELLA VACCINES (1 of - 1983 2-dose childhood series) DTaP,Tdap,and Td Vaccines ( - 1993 Tdap) INFLUENZA VACCINE (#1) 2018 PNEUMOCOCCAL 0-64 YEARS COMBINED Aged Out No longer eligible based on SERIES patient's age to complete this topic documented as of this encounter Results Not on filedocumented in this encounter Visit Diagnoses Diagnosis Attention deficit disorder (ADD) without hyperactivity - Primary Anxiety Anxiety state, unspecified documented in this encounter ([place]) [place] [address] documented as of this encounter"
--- OUTSIDE RECORDS SUMMARY | 2019-08-22 17:13 | XMS REPORT | Summary of Care ---
:[address] [facility] Address [address] [place] [address] Care Team Providers Name Role Phone MD Angel Primary Care Provider Reason for Visit Reason Comments Follow-up ADD Refill Request Encounter Details Date Type Department Care Team Description 07/05/[address] [facility] Family Pio Ortiz Atten tion deficit disorder (ADD) without hyperactivity (Primary Dx); Medicine - [place] MD Anxiety 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
--- OUTSIDE RECORDS SUMMARY | 2019-08-22 17:13 | XMS REPORT | Summary of Care ---
:1980 Author Organization [facility] Address [address] [place] [address] Care Team Providers Name Role Phone MD Angel Primary Care Provider Reason for Visit Reason Comments Refill Request Encounter Details Date Type Department Care Team Description 12/12/2018 Refill [facility] Family Medicine Pio Umaña MD Refill Request - [address] [address] [place] [address] [phone] Allergies Active Allergy Reactions Severity Noted Date Comments Cefaclor Unknown - See comments 06/20/2015 6MO documented as of this encounter (statuses as of 12/12/2018) Medications Medication Sig Dispensed Refills Start Date End Date Status fluconazole (DIFLUCAN) Take one and 2 tablet 0 08/13/2016 Active 150 mg tablet repeat in 5 days oxyCODONE C.R. 10 mg 0 04/15/2017 Active 12h tablet oxyCODONE-acetaminophe 0 04/15/2017 Active n 5-325 mg per tablet levETIRAcetam 500 mg TK 2 TS PO 6 05/02/2017 Active 24 hr tablet QD terbinafine HCl 250 mg Take 1 30 tablet 0 05/13/2017 Active tablet tablet by mouth daily. lisdexamfetamine Take 1 30 capsule 0 06/28/2018 A ctive (VYVANSE) 50 mg capsule by capsuleIndications: mouth every Attention deficit morning. disorder (ADD) without hyperactivity clonazePAM 1 mg Take 1 60 tablet 5 08/01/2018 Act awa tabletIndications: tablet by Anxiety mouth 2 (two) times daily. finasteride 5 mg Take 1 30 tablet 5 08/01/2018 Ac tive tabletIndications: tablet by Alopecia of scalp mouth daily. amphetamine-dextroamph Take 1 30 capsule 0 12/12/2018 Active etamine (ADDERALL XR) capsule by 30 mg 24 hr mouth every capsuleIndications: morning. Attention deficit disorder (ADD) without hyperactivity amphetamine-dextroamph Take 1 30 capsule 0 11/09/201812/12 Discontinued etamine (ADDERALL XR) capsule by 9 30 mg 24 hr mouth every capsuleIndications: morning. Attention deficit disorder (ADD) without hyperactivity documented as of this encounter (statuses as of 12/12/2018) Active Problems Problem Noted Date Anxiety 06/20/2015 Low back pain 06/20/2015 documented as of this encounter (statuses as of 12/12/2018) Social History Tobacco Use Types Packs/Day Years [...] Treatment Date Type Specialty Care Team Description 01/04/2019 Office Visit Family Medicine Pio Ortiz MD [address] [place] [phone] Health Maintenance Due Date Last Done Comments VARICELLA VACCINES (1 of 2 - 13+ 1995 2-dose series) DTaP,Tdap,and Td Vaccines (1 - 2001 Tdap) INFLUENZA VACCINE (#1) 2018 PNEUMOCOCCAL 0-64 YEARS COMBINED Aged Out No longer eligible based on SERIES patient's age to complete this topic documented as of this encounter Results Not on filedocumented in this encounter Visit Diagnoses Diagnosis Attention deficit disorder (ADD) without hyperactivity documented in this encounter Insurance Payer Benefit Plan / Group Subscriber ID Effective Dates Phone Address Type CIGMERCEDES CIGMERCEDES II [id number] 2017-Present H MO/PPO/POS documented as of this encounter
--- OUTSIDE RECORDS SUMMARY | 2019-08-22 17:13 | XMS REPORT | Summary of Care ---
:1980 Author Organization [facility] Address [address] [place] [address] Care Team Providers Name Role Phone MD Angel Primary Care Provider Reason for Visit Reason Comments Follow-up ADD Refill Request Encounter Details Date Type Department Care Team Description 01/04/2019 Office Visit [facility] Family Pio Ortiz Atten tion deficit Medicine - Dann ANSARI hyperactivity disorder [address] (ADHD[address] ADHD type (Primary Dx) [place] [phone] Allergies Active Allergy Reactions Severity Noted Date Comments Cefaclor Unknown - See comments 06/20/2015 6MO documented as of this encounter (statuses as of 01/04/2019) Medications Medication Sig Dispensed Refills Start Date End Date Status fluconazole (DIFLUCAN) Take one and 2 tablet 0 08/13/2016 Active 150 mg tablet repeat in 5 days oxyCODONE C.R. 10 mg 12h 0 04/15/2017 Active tablet oxyCODONE-acetaminophen 0 04/15/2017 Active 5-325 mg per tablet levETIRAcetam 500 mg 24 TK 2 TS PO QD 6 05/02/2017 Active hr tablet terbinafine HCl 250 mg Take 1 tablet 30 tablet 0 05/13/2017 Active tablet by mouth daily. lisdexamfetamine Take 1 capsule 30 capsule 0 06/28/2018 Active (VYVANSE) 50 mg by mouth every capsuleIndications: morning. Attention deficit disorder (ADD) without hyperactivity clonazePAM 1 mg Take 1 tablet 60 tablet 5 08/01/2018 Active tabletIndications: by mouth 2 Anxiety (two) times daily. finasteride 5 mg Take 1 tablet 30 tablet 5 08/01/2018 Active tabletIndications: by mouth daily. Alopecia of scalp amphetamine-dextroamphet Take 1 capsule 30 capsule 0 9 Active amine (ADDERALL XR) 30 by mouth every mg 24 hr morning. capsuleIndications: Attention deficit disorder (ADD) without hyperactivity XTAMPZA ER 27 mg CSpT TAKE 1 CAPSULE 0 12/29/2018 Active BY MOUTH WITH FOOD EVERY 12 HOURS FOR 30 DAYS methylphenidate HCl 36 Take 1 tablet 30 tablet 0 01/04/2019 Active mg 24 hr by mouth every tabletIndications: morning. 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 Here for add, stable Allergies Bud is allergic to ceclor [cefaclor]. Medications Outpatient Medications Prior to Visit Medication Sig Dispense Refill XTAMPZA ER 27 mg CSpT TAKE 1 CAPSULE BY MOUTH WITH FOOD EVERY 12 HOURS FOR 30 DAYS 0 amphetamine-dextroamphetamine (ADDERALL XR) 30 mg 24 hr capsule Take 1 capsule by mouth every morning. 30 capsule 0 clonazePAM 1 mg tablet Take 1 tablet by mouth 2 (two) times daily. 60 tablet 5 finasteride 5 mg tablet Take 1 tablet by mouth daily. 30 tablet 5 levETIRAcetam 500 mg 24 hr tablet TK 2 TS PO QD 6 oxyCODONE C.R. 10 mg 12h tablet lisdexamfetamine (VYVANSE) 50 mg capsule Take 1 capsule by mouth every morning. 30 capsule 0 oxyCODONE-acetaminophen 5-325 mg per tablet terbinafine HCl [...] file Gets together: Not on file Attends mu-ism service: Not on file Active member of [...] file. Review of Systems Vital Signs BP 130/80 | Wt 182 lb (82.6 kg) | BMI 26.88 kg/m Physical Exam Constitutional: He appears well-developed and well-nourished. HENT: Head: Normocephalic and atraumatic. Right Ear: External ear normal. Left Ear: External ear normal. Cardiovascular: Normal rate, regular rhythm and normal heart sounds. Pulmonary/Chest: Effort normal and breath sounds normal. Abdominal: Soft. Musculoskeletal: Normal range of motion. Neurological: He is alert. Skin: Skin is warm. Vitals reviewed. Assessment/Plan ADD, stable, medication refill This visit did not involve [...] this encounter Visit Diagnoses Diagnosis Attention deficit hyperactivity disorder (ADHD), unspecified ADHD type - Primary documented in this encounter ([place]) [place] [address] documented as of this encounter"
--- OUTSIDE RECORDS SUMMARY | 2019-08-22 17:13 | XMS REPORT | Summary of Care ---
:1980 Author Organization [facility] Address [address] [place] [address] Care Team Providers Name Role Phone MD Angel Primary Care Provider Reason for Visit Reason Comments Follow-up ADD Refill Request Encounter Details Date Type Department Care Team Description 01/04/2019 Office Visit [facility] Family Pio Ortiz Atten tion deficit Medicine - Dann ANSARI hyperactivity disorder 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
--- OUTSIDE RECORDS SUMMARY | 2019-08-22 17:13 | XMS REPORT ---
:1980 Author Organization [facility] Address [address] [place] [address] Dr. Cortes [address] [place] [address] Care Team Providers Name Role Phone Unavailable Unavailable Unavailable Problems This patient has no known problems. Allergies, Adverse Reactions, Alerts This patient has no known allergies or adverse reactions. Medications This patient has no known medications.
--- OUTSIDE RECORDS SUMMARY | 2019-08-22 17:14 | XMS REPORT | Summary of Care ---
:[address] [facility] Address [address] [place] [address] Care Team Providers Name Role Phone MD Angel Primary Care Provider Reason for Visit Reason Comments Rx Concern/Question Encounter Details Date Type Department Care Team Description 07/12/[address] [facility] Family Luis Miguel Ortiz MD Rx Concern/Question Medicine - [address] [address] [phone] Allergies Active Allergy Reactions Severity Noted Date Comments Cefaclor Unknown - See comments 06/20/2015 6MO documented as of this encounter (statuses as of 07/18/2019) Medications Medication Sig Dispensed Refills Start Date End Date Status fluconazole (DIFLUCAN) Take one and 2 tablet 0 08/13/2016 Active 150 mg tablet repeat in 5 days oxyCODONE C.R. 10 mg 0 04/15/2017 Active 12h tablet oxyCODONE-acetaminophen 0 04/15/2017 Active 5-325 mg per tablet levETIRAcetam 500 mg 24 TK 2 TS PO QD 6 05/02/2017 Active hr tablet terbinafine HCl 250 mg Take 1 tablet by 30 tablet 0 05/13/2017 Active tablet mouth daily. XTAMPZA ER 27 mg CSpT TAKE 1 CAPSULE 0 12/29/2018 Active BY MOUTH WITH FOOD EVERY 12 HOURS FOR 30 DAYS finasteride 5 mg Take 1 tablet by 30 tablet 5 05/04/2019 Active tabletIndications: mouth daily. Alopecia of scalp dextroamphetamine-amphe Take 1 tablet by 60 tablet 0 0 Active tamine 20 mg mouth 2 (two) tabletIndications: times daily. Attention deficit disorder (ADD) without hyperactivity clonazePAM 1 mg Take 1 tablet by 60 tablet 5 07/05/2019 Active tabletIndications: mouth 2 (two) Anxiety times daily. amphetamine-dextroamphe Take 1 capsule 60 capsule 0 07/06/2019 Active tamine 25 mg 24 hr by mouth 2 (two) capsuleIndications: times daily. Attention deficit disorder (ADD) without hyperactivity documented as of this encounter (statuses as of 07/18/2019) Active Problems Problem Noted Date Anxiety 06/20/2015 Low back pain 06/20/2015 documented as of this encounter (statuses as of 07/18/2019) Social History Tobacco Use Types Packs/Day Years [...] Office Visit Family Medicine Pio Ortiz MD [address] [place] [phone] Health Maintenance Due Date Last Done Comments VARICELLA VACCINES (1 of 2 - 1983 2-dose childhood series) DTaP,Tdap,and Td Vaccines ( - 1993 Tdap) INFLUENZA VACCINE (#1) 2018 PNEUMOCOCCAL 0-64 YEARS COMBINED Aged Out No longer eligible based on SERIES patient's age to complete this topic documented as of this encounter Results Not on filedocumented in this encounter Insurance Payer Benefit Plan / Group Subscriber ID Effective Dates Phone Address Type CAPRI [id number] II [id number] 2017-Present H MO/PPO/POS documented as of this encounter
--- OUTSIDE RECORDS SUMMARY | 2019-08-22 17:14 | XMS REPORT | Summary of Care ---
:1980 Author Organization [facility] Address [address] [place] [address] Care Team Providers Name Role Phone MD Angel Primary Care Provider Reason for Visit Reason Comments Error Encounter Details Date Type Department Care Team Description 08/22/2019 Telemedicine Visit [facility] Pio Ortiz ERRON EOUS Pediatric and Adult MD ENCOUNTER--DISREGAR Primary Care- [address] (Primary D x) [address] [place], [place] , [address] [address] [place], [place] [phone] Allergies Active Allergy Reactions Severity Noted Date Comments Cefaclor Unknown - See comments 06/20/2015 6MO documented as of this encounter (statuses as of 08/22/2019) Medications Medication Sig Dispensed Refills Start Date End Date Status finasteride 5 mg Take 1 tablet by 30 tablet 5 05/04/2019 Active tabletIndications: mouth daily. Alopecia of scalp clonazePAM 1 mg Take 1 tablet by 60 tablet 5 07/05/2019 Active tabletIndications: mouth 2 (two) Anxiety times daily. dextroamphetamine-amph Take 1 tablet by 60 tablet 0 08/21/2019 Active etamine 30 mg mouth 2 (two) tabletIndications: times daily. Attention deficit disorder (ADD) without hyperactivity albuterol 90 Inhale 2 Puffs 8.5 g 0 08/21/2019 A ctive mcg/actuation every 6 (six) inhalerIndications: hours as needed SOB (shortness of for Wheezing or breath), Cough Shortness of Breath. albuterol 2.5 mg /3 mL Inhale 3 mL every 1 Box 0 0 Active (0.083 %) nebulizer 6 (six) hours as solutionIndications: needed for SOB (shortness of Wheezing or breath), Cough Shortness of Breath. documented as of this encounter (statuses as of 08/22/2019) Active Problems Problem Noted Date Anxiety 06/20/2015 Low back pain 06/20/2015 documented as of this encounter (statuses as of 08/22/2019) Social History Tobacco Use Types Packs/Day Years Used Date Never Smoker Smokeless Tobacco: Never Used Sex Assigned at Date Recorded Not on file Job Start Date Occupation Industry Not on file Not on file Not on file Travel History Travel Start Travel End No recent travel history available. documented as of this encounter Last Filed Vital Signs Not on filedocumented in this encounter Progress Notes Pio Otriz MD - 08/22/2019 10:15 AM CDTPT did not answer phone after several tries, message left to call back if needed. documented in this encounter Plan of Treatment Date Type Specialty Care Team Description 10/05/2019 Telemedicine Visit Family Medicine Luis Miguel Ortiz MD [address] [place] [phone] Health Maintenance Due Date Last Done Comments VARICELLA VACCINES (1 of 2 - 1983 2-dose childhood series) DTaP,Tdap,and Td Vaccines (1 - 1993 Tdap) INFLUENZA VACCINE (#1) 2018 PNEUMOCOCCAL 0-64 YEARS COMBINED Aged Out No longer eligible based on SERIES patient's age to complete this topic documented as of this encounter Results Not on filedocumented in this encounter Visit Diagnoses Diagnosis ERRONEOUS ENCOUNTER--DISREGARD - Primary documented in this encounter documented as of this encounter
--- OUTSIDE RECORDS SUMMARY | 2019-08-22 17:14 | XMS REPORT | Summary of Care ---
:1980 Author Organization [facility] Address [address] [place] [address] Care Team Providers Name Role Phone MD Angel Primary Care Provider Reason for Visit Reason Comments Rx Concern/Question Encounter Details Date Type Department Care Team Description 07/18/2019 Telephone [facility] Family Luis Miguel Ortiz MD Rx Concern/Question Medicine - [address] [phone] Allergies Active Allergy Reactions Severity Noted Date Comments Cefaclor Unknown - See comments 06/20/2015 6MO documented as of this encounter (statuses as of 07/19/2019) Medications Medication Sig Dispensed Refills Start Date [...] tablet by Alopecia of scalp mouth daily. clonazePAM 1 mg Take 1 60 tablet 5 07/05/2019 Act awa tabletIndications: tablet by Anxiety mouth 2 (two) times daily. 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
--- OUTSIDE RECORDS SUMMARY | 2019-08-22 17:14 | XMS REPORT | Summary of Care ---
:1980 Author Organization [facility] Address [address] [place] [address] Care Team Providers Name Role Phone MD Angel Primary Care Provider Reason for Visit Reason Comments Results Encounter Details Date Type Department Care Team Description 08/22/2019 Telephone [facility] Family Medicine Leigh Patino FNP Results - [address] [facility] [address] [place] [address] [place] [address] [phone] Allergies Active Allergy Reactions Severity Noted Date [...] Visit Family Medicine Luis Miguel Ortiz MD [address] [place] [address] [phone] Health Maintenance Due Date Last Done [...] Dates Phone Address Type CAPRI FAROOQ II [id number] 2017-Present H MO/PPO/POS documented as of this encounter
--- OUTSIDE RECORDS SUMMARY | 2019-08-22 17:14 | XMS REPORT | Summary of Care ---
:1980 Author Organization [facility] Address [address] [place] [address] Care Team Providers Name Role Phone MD Angel Primary Care Provider Reason for Visit Reason Comments Rx Concern/Question Encounter Details Date Type Department Care Team Description 07/06/2019 Telephone [facility] Family Luis Miguel Ortiz MD Rx Concern/Question Medicine - [address] [phone] [phone] Allergies Active Allergy Reactions Severity Noted Date Comments Cefaclor Unknown - See comments 06/20/2015 6MO documented as of this encounter (statuses as of 07/06/2019) Medications Medication Sig Dispensed Refills Start Date [...] (two) times disorder (ADD) daily. without hyperactivity clonazePAM 1 mg Take 1 60 tablet 5 07/05/2019 Act awa tabletIndications: tablet by Anxiety mouth 2 (two) times daily. 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 : Attention deficit disorder (ADD) without hyperactivity documented as of this encounter (statuses as of 07/06/2019) Active Problems Problem Noted Date Anxiety 06/20/2015 Low back pain 06/20/2015 documented as of this encounter (statuses as of 07/06/2019) Social History Tobacco Use Types Packs/Day Years [...] Office Visit Family Medicine Pio Ortiz MD [address] [place] [address] [phone] Health Maintenance Due Date Last Done [...] Dates Phone Address Type CIGMERCEDES CIGMERCEDES II [id number] 2017-Present H MO/PPO/POS documented as of this encounter
--- OUTSIDE RECORDS SUMMARY | 2019-08-22 17:14 | XMS REPORT | Summary of Care ---
:1980 Author Organization [facility] Address [address] [place] [address] Care Team Providers Name Role Phone MD Angel Primary Care Provider Reason for Visit Reason Comments Shortness of Breath Fatigue Cough Fever Body Aches Chills Encounter Details Date Type Department Care Team Description 08/21/2019 Urgent Care [facility] Family Carmenza Lewis FNP [facility] [address] [place] [phone] Viral illness (Primary Dx); Medicine - [facility] SOB (shortness of breath); [address] [place] [address] Driv [address] Fever, unspecified fever cau se; [place], [place] Diarrhea, unspe cified type; [phone] Body aches; [phone] Cough Allergies Active Allergy Reactions Severity Noted Date Comments Cefaclor Unknown - See comments 06/20/2015 6MO documented as of this encounter (statuses as of 08/21/2019) Medications Medication Sig Dispensed Refills Start Date End Date Status finasteride 5 mg Take 1 tablet 30 tablet 5 05/04/2019 Active tabletIndications: by mouth Alopecia of scalp daily. clonazePAM 1 mg Take 1 tablet 60 tablet 5 07/05/2019 Active tabletIndications: by mouth 2 Anxiety (two) times daily. dextroamphetamine- Take 1 tablet 60 tablet 0 08/21/2019 Active amphetamine 30 mg by mouth 2 tabletIndications: (two) times Attention deficit daily. disorder (ADD) without hyperactivity albuterol 90 Inhale 2 Puffs 8.5 g 0 08/21/2019 A ctive mcg/actuation every 6 (six) inhalerIndications hours as : SOB (shortness needed for of breath), Cough Wheezing or Shortness of Breath. albuterol 2.5 mg Inhale 3 mL 1 Box 0 08/21/2019 Active /3 mL (0.083 %) every 6 (six) nebulizer hours as solutionIndication needed for s: SOB (shortness Wheezing or of breath), Cough Shortness of Breath. fluconazole Take one and 2 tablet 0 08/13/2016 Disc ontinued (DIFLUCAN) 150 mg repeat in 5 0 (Patient tablet days Reported) oxyCODONE C.R. 10 0 04/15/2017 D iscontinued mg 12h tablet 0 (Patie nt Reported) oxyCODONE-acetamin 0 04/15/2017 Discontinued ophen 5-325 mg per 0 ( Patient tablet Reported) levETIRAcetam 500 TK 2 TS PO QD 6 05/02/2017 02 Discontinued mg 24 hr tablet 0 (Pat ient Reported) terbinafine HCl Take 1 tablet 30 tablet 0 05/13/2017 Discontinued 250 mg tablet by mouth 0 (Patie nt daily. Reported) XTAMPZA ER 27 mg TAKE 1 CAPSULE 0 12/29/2018 02 Discontinued CSpT BY MOUTH WITH 0 (Patie nt FOOD EVERY 12 Report ed) HOURS FOR 30 DAYS documented as of this encounter (statuses as of 08/21/2019) Active Problems Problem Noted Date Anxiety 06/20/2015 Low back pain 06/20/2015 documented as of this encounter (statuses as of 08/21/2019) Social History Tobacco Use Types Packs/Day Years [...] Sign Reading Time Taken Comments Blood Pressure 149/109 08/21/2019 2:05 PM CDT Pulse 94 08/21/2019 2:00 PM CDT Temperature 36.9 C (98.4 F) 08/21/2019 2:00 PM CDT Respiratory Rate - - Oxygen Saturation 99% 08/21/2019 2:00 PM CDT Inhaled Oxygen Concentration - - Weight 79.8 kg (176 lb) 08/21/2019 2:00 PM CDT Height 175.3 cm (5' 9") 08/21/2019 2:00 PM CDT Body Mass Index 25.99 08/21/2019 2:00 PM CDT documented in this encounter Patient Instructions Patient InstructionsJulioAmanda hirschEILEEN nicholas - 08/21/2019 1:40 PM CDT1. Viral illness - CORONAVIRUS COVID-19 TESTING; Future - CORONAVIRUS COVID-19 TESTING - Quarantine until your COVID results are back Criteria met - Covid testing - pending. This test can take 2-3 days to be resulted. While the test is pending...Please socially isolate your self - do not go out to stores or out in public. We will contact you once we have the results. If you are negative - continue with symptomatic treatment. (see below) Patients who have positive results will be contacted by the health department to enforce quarantine measures and for additional community contact tracing. The Infection Control Department will also undertake evaluation of exposures in our healthcare facility. If symptoms worsen - please call your Primary Care Doctor - do not go into the clinic. Call first. Educated on the following at home care: -Increase water intake, min 64 oz daily -Advised to increase fluid intake, ensure to stay hydrated, and get plenty of rest -Take over the counter remidies; vitamin C for immune boosting - Steam/humidifier inhalation -Take Tylenol as needed, avoid nsaids - Pt advised to clean all high risk surfaces -Wash hands often; use alcohol based hand instrument inspector that contains at least 60% alcohol -Cover mouth when coughing, wear mask -Stay in your own bedroom and use a separate bathroom -Keep at least 6 feet from you and others -Avoid sharing personal household items, dishes, glasses, cups, towels -Clean high traffic/touch areas daily. These include but not limited to: doorknobs, refrigerator/cabinet handles, phones, keyboards, tablets, light switches. -Monitor your symptoms. Take your temperature 2 times daily. -Monitor your symptoms. Go to the ED if worsening symptoms: chest pain, difficulty breathing, coughing up blood, weakness, dizziness, passing out. Follow-up with PCP as needed, if no improvement EDUCATION: Handouts given: "What to do if you are sick with COVID-19" CDC information guide reviewed with the patient and handout given to patient FOLLOW UP: Pt advised to call 911 or go to the nearest Emergency Department sooner for any worsening, persistent, or concerning symptoms ER precautions given documented in this encounter Progress Notes Leigh Menendez FNP - 08/21/2019 1:40 PM CDT Cc: Chief Complaint Patient presents with Shortness of Breath Fatigue Cough Fever Body Aches Chills Bud Espinal is a 39 year old male presents with concern for cough, body aches and fever. He started about 10 days ago with cough/congestion, runny nose. Now with intermittent fever for about 5 days,TMAX 101.4. He's had intermittent diarrhea. He's taking benadryl, immodium, mucinex and ibuprofen with some improvement in symptoms. He's also using his daughters albuterol neb treatments with improvement. Decreased appetite, tolerating fluids. Denies any travel. He works at [employer] and is unsure of sick contacts. URI Presenting symptoms: congestion, cough, fatigue, fever and rhinorrhea Presenting symptoms: no ear pain, no facial pain and no sore throat Congestion: Location: Nasal Interferes with sleep: no Interferes with eating/drinking: no Cough: Cough characteristics: Dry Severity: Moderate Onset quality: Gradual Duration: 10 days Timing: Intermittent Progression: Unchanged Chronicity: New Fatigue: Severity: Mild Duration: 5 days Timing: Intermittent Progression: Unchanged Fever: Duration: 5 days Timing: Intermittent Max temp prior to arrival: 101.4 Temp source: Oral Progression: Unchanged Severity: Mild Onset quality: Gradual Duration: 10 days Timing: Intermittent Progression: Unchanged Chronicity: New Relieved by: OTC medications Worsened by: Nothing Associated symptoms: myalgias and sneezing Associated symptoms: no arthralgias, no headaches, no neck pain, no sinus pain, no swollen glands and no wheezing Risk factors: no immunosuppression, no recent illness, no recent travel and no sick contacts Allergies Bud is allergic to ceclor [cefaclor]. Medications Outpatient Medications Prior to Visit Medication Sig Dispense Refill dextroamphetamine-amphetamine 30 mg tablet Take 1 tablet by mouth 2 (two) times daily. 60 tablet0 clonazePAM 1 mg tablet Take 1 tablet by mouth 2 (two) times daily. 60 tablet 5 finasteride 5 mg tablet Take 1 tablet by mouth daily. 30 tablet 5 XTAMPZA ER 27 mg CSpT [...] No facility-administered medications prior to visit. Histories History reviewed. No pertinent past medical history. History reviewed. No pertinent surgical history. Social History Socioeconomic History Marital status: Spouse [...] file Gets together: Not on file Attends cheondoism service: Not on file Active member of [...] file Social History Narrative Not on file History reviewed. No pertinent family history. Review of Systems Constitutional: Positive for appetite change, chills, fatigue and fever. HENT: Positive for congestion, postnasal drip, rhinorrhea and sneezing. Negative for ear pain, sinuspain and sore throat. Respiratory: Positive for cough and shortness of breath. Negative for wheezing and stridor. Gastrointestinal: Positive for diarrhea. Negative for nausea and vomiting. Musculoskeletal: Positive for myalgias. Negative for arthralgias and neck pain. Skin: Negative for rash. Neurological: Negative for dizziness, weakness and headaches. All other systems reviewed and are negative. Vital Signs BP (!) 149/109 | Pulse 94 | Temp 36.9 C (98.4 F) (Oral) | Ht 5' 9" (1.753 m) | Wt 176 lb (79.8 kg) | SpO2 99% | BMI 25.99 kg/m Physical Exam Constitutional: He is oriented to person, place, and time. He appears well- developed and well-nourished. HENT: Head: Normocephalic and atraumatic. Right Ear: Tympanic membrane, external ear and ear canal normal. Left Ear: Tympanic membrane, external ear and ear canal normal. Nose: Mucosal edema and rhinorrhea present. No sinus tenderness. Mouth/Throat: Uvula is midline, oropharynx is clear and moist and mucous membranes are normal. Tonsils are 1+ on the right. Tonsils are 1+ on the left. Eyes: Conjunctivae are normal. Neck: Normal range of motion. Neck supple. Cardiovascular: Normal rate, regular rhythm and normal heart sounds. Exam reveals no gallop and no friction rub. No murmur heard. Pulmonary/Chest: Effort normal and breath sounds normal. No respiratory distress. He has no wheezes.He has no rales. Abdominal: Soft. Bowel sounds are normal. He exhibits no distension. There is no tenderness. There is no rigidity, no rebound, no guarding and no CVA tenderness. Musculoskeletal: Normal range of motion. Neurological: He is alert and oriented to person, place, and time. Skin: Skin is warm and dry. Psychiatric: He has a normal mood and affect. His behavior is normal. Nursing note and vitals reviewed. Assessment/Plan Bud Espinal is a 39 year old male presents with concern for cough, body aches and fever. 1. Viral illness - CORONAVIRUS COVID-19 TESTING; Future - CORONAVIRUS COVID-19 TESTING - Quarantine until your COVID results are back Criteria met - Covid testing - pending. This test can take 2-3 days to be resulted. While the test is pending...Please socially isolate your self - do not go out to stores or out in public. We will contact you once we have the results. If you are negative - continue with symptomatic treatment. (see below) Patients who have positive results will be contacted by the health department to enforce quarantine measures and for additional community contact tracing. The Infection Control Department will also undertake evaluation of exposures in our healthcare facility. If symptoms worsen - please call your Primary Care Doctor - do not go into the clinic. Call first. Educated on the following at home care: -Increase water intake, min 64 oz daily -Advised to increase fluid intake, ensure to stay hydrated, and get plenty of rest -Take over the counter remidies; vitamin C for immune boosting - Steam/humidifier inhalation -Take Tylenol as needed, avoid nsaids - Pt advised to clean all high risk surfaces -Wash hands often; use alcohol based hand instrument inspector that contains at least 60% alcohol -Cover mouth when coughing, wear mask -Stay in your own bedroom and use a separate bathroom -Keep at least 6 feet from you and others -Avoid sharing personal household items, dishes, glasses, cups, towels -Clean high traffic/touch areas daily. These include but not limited to: doorknobs, refrigerator/cabinet handles, phones, keyboards, tablets, light switches. -Monitor your symptoms. Take your temperature 2 times daily. -Monitor your symptoms. Go to the ED if worsening symptoms: chest pain, difficulty breathing, coughing up blood, weakness, dizziness, passing out. Follow-up with PCP as needed, if no improvement EDUCATION: Handouts given: "What to do if you are sick with COVID-19" CDC information guide reviewed with the patient and handout given to patient FOLLOW UP: Pt advised to call 911 or go to the nearest Emergency Department sooner for any worsening, persistent, or concerning symptoms ER precautions given 2. SOB (shortness of breath) - CORONAVIRUS COVID-19 TESTING; Future - CORONAVIRUS COVID-19 TESTING - albuterol 90 mcg/actuation inhaler; Inhale 2 Puffs every 6 (six) hours as needed for Wheezing or Shortness of Breath. Dispense: 8.5 g; Refill: 0 - albuterol 2.5 mg /3 mL (0.083 %) nebulizer solution; Inhale 3 mL every 6 (six) hours as needed forWheezing or Shortness of Breath. Dispense: 1 Box; Refill: 0 - Follow up with PCP, urgent care or ER in 2-3 days or sooner if symptoms do now improve or worsens.Patient/parent verbalized understanding and agreed with plan of care. 3. Fever, unspecified fever cause - CORONAVIRUS COVID-19 TESTING; Future - CORONAVIRUS COVID-19 TESTING 4. Diarrhea, unspecified type - CORONAVIRUS COVID-19 TESTING; Future - CORONAVIRUS COVID-19 TESTING 5. Body aches - CORONAVIRUS COVID-19 TESTING; Future - CORONAVIRUS COVID-19 TESTING 6. Cough - albuterol 90 mcg/actuation inhaler; Inhale 2 Puffs every 6 (six) hours as needed for Wheezing or Shortness of Breath. Dispense: 8.5 g; Refill: 0 - albuterol 2.5 mg /3 mL (0.083 %) nebulizer solution; Inhale 3 mL every 6 (six) hours as needed forWheezing or Shortness of Breath. Dispense: 1 Box; Refill: 0 Plan of care, desired health behaviors, goals, and medication discussed with patient. Education resources provided and reviewed with AVS. Patient/guardian/family verbalized understanding & agrees to plan of care. If applicable, the [place] [employer] database was accessed to review any controlled substance prescription claims data. The [employer] prescription claims data in [employer] was reviewed to assess patient compliance with the medication treatment plan. Urgent Care precautions and follow up : 1. Return to clinic if your symptoms should worsen or fail to improve within 72 hours. 2. The care provided in the urgent care was for acute problems only. 3. You should follow up with your primary care provider within 72 hours. 4. Fill and take all your medications as prescribed. 5. Make sure you are staying adequately hydrated. MAY FOLLOW-UP WITH A PROVIDER OF YOUR CHOICE, SUCH : 1. A PHYSICIAN OF YOUR CHOICE OR, IF YOU WISH TO FOLLOW-UP WITHIN THE [facility], MAY TRY THESE OPTIONS (CLINIC APPOINTMENTS AVAILABLE ON UNTA-WJ-QLNT BASIS): 1. SCHEDULE AN APPOINTMENT ONLINE AT WWW[facility] 2. OR CALL THE [facility] AT OR 3. OR CALL YOUR [facility] PHYSICIAN'S OFFICE DIRECTLY IF YOU ARE ALREADY AN ESTABLISHED [facility] PATIENT. After hours care nurse access center available by calling [phone] 24 hours 7 days per week. Leigh ARELLANO [facility] documented in this encounter Plan of Treatment Date Type Specialty Care Team Description 08/22/2019 Telemedicine Visit Family Medicine Luis Miguel Ortiz MD [address], [place] [phone] 10/05/2019 Office Visit Family Medicine Pio Ortiz MD [address], [place] [phone] Name Type Priority Associated Diagnoses Order S chedule CORONAVIRUS COVID-19 LAB Routine SOB (shortn ess of breath) Expected: 08/21/2019, TESTING Fever, unspecified fever Exp ires: 08/20/2020 cause Diarrhea, unspecified type Body aches Health Maintenance Due Date Last Done Comments VARICELLA VACCINES (1 of 2 - 1983 2-dose childhood series) DTaP,Tdap,and Td Vaccines (1 - 1993 Tdap) INFLUENZA VACCINE (#1) 2018 PNEUMOCOCCAL 0-64 YEARS COMBINED Aged Out No longer eligible based on SERIES patient's age to complete this topic documented as of this encounter Results Not on filedocumented in this encounter Visit Diagnoses Diagnosis Viral illness - Primary Unspecified viral infection, in conditio ns classified elsewhere and of unspecified site SOB (shortness of breath) Shortness of breath Fever, unspecified fever cause Diarrhea, unspecified type Body aches Generalized pain Cough documented in this encounter ([place]) [place] [address] documented as of this encounter
--- OUTSIDE RECORDS SUMMARY | 2019-08-22 17:14 | XMS REPORT | Summary of Care ---
:1980 Author Organization [facility] Address [address] [place] [address] Care Team Providers Name Role Phone MD Angel Primary Care Provider Reason for Visit Reason Comments Rx Concern/Question Encounter Details Date Type Department Care Team Description 07/06/2019 Telephone [facility] Family Luis Miguel Ortiz MD Rx Concern/Question Medicine - [address] [phone] [phone] Allergies Active Allergy Reactions Severity Noted Date Comments Cefaclor Unknown - See comments 06/20/2015 6MO documented as of this encounter (statuses as of 07/12/2019) Medications Medication Sig Dispensed Refills Start Date [...] as of this encounter (statuses as of 07/12/2019) Active Problems Problem Noted Date Anxiety 06/20/2015 Low back pain 06/20/2015 documented as of this encounter (statuses as of 07/12/2019) Social History Tobacco Use Types Packs/Day Years [...] Office Visit Family Medicine Pio Ortiz MD [address] [place] [address] [phone] Health Maintenance Due Date Last Done [...] Dates Phone Address Type CAPRI FAROOQ II [id number] 2017-Present H MO/PPO/POS documented as of this encounter
[2019-08-22 17:35] LABS: Absolute Lymphocytes (CBC) 1.4 K/uL (0.7-4.9); Basophils % 0.4 % (0-1.3); Hematocrit 42.5 % (39.6-49.0); Lymphocytes % 35.1 % (15.3-44.8); MPV 8.3 fL (7.6-11.3)
[2019-08-22 17:43] LABS: Protime INR 1.12
[2019-08-22 18:04] LABS: ALT/SGPT 56 U/L (12-78); AST/SGOT 128 U/L (15-37); Albumin 4.2 g/dL (3.4-5.0); Alkaline Phosphatase 91 U/L (45-117); BUN Blood Urea Nitrogen 4 mg/dL (7-18); Bicarbonate 25 mmol/L (21-32); Bilirubin Direct 0.2 mg/dL (0-0.2); Bilirubin Total 0.8 mg/dL (0.2-1.0); Creatine Phosphokinase 308 U/L (39-308); Glucose Level 145 mg/dL (74-106); Lipase 192 U/L (73-393); Magnesium 2.2 mg/dL (1.8-2.4); Potassium 3.7 mmol/L (3.5-5.1); Protein, Total 7.8 g/dL (6.4-8.2); Sodium Level 142 mmol/L (136-145); Troponin (Emerg Dept Use Only) < 0.02 ng/mL (0.0-0.045)
--- NOTE | 2019-08-22 18:14 | RAD REPORT ---
EXAM DESCRIPTION: CT - Head Brain Wo Cont - 08/22/2019 6:05 pm CLINICAL HISTORY: Syncope COMPARISON: None. TECHNIQUE: Computed axial tomography of the head was obtained. IV contrast was not requested. All CT scans are performed using dose optimization technique as appropriate and may include automated exposure control or mA/KV adjustment according to patient size. FINDINGS: An intracranial bleed is not seen . The ventricles are normal in caliber. No extra-axial fluid collection is noted. Fluid within the sinuses/ mastoids is not seen. IMPRESSION: No acute intracranial abnormality is seen. If patient's symptoms persist MRI of the bra in would be recommended.
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
--- NOTE | 2019-08-22 18:26 | ER ---
Nurse's Notes [facility] Name: Bud Espinal Age: 39 yrs Sex: Male : 1980 Arrival Date: 08/22/2019 Time: 17:11 Bed 14 Private MD: Diagnosis: Alcohol abuse with intoxication;Syncope and collapse;Abnormal electrocardiogram [ECG] [EKG] Presentation: 08/21 17:11 Chief complaint: EMS states: PT HAS BEEN DRINKING TODAY. CALLED BECAUSE HE PASSED ls4 OUT. Coronavirus screen: Proceed with normal triage. Patient denies a cough. Patient denies shortness of breath or difficulty breathing. Patient denies measured and/or subjective temperature greater than 100.4F prior to today's visit. Patient denies travel on a cruise ship or to a country the [facility] currently lists as an affected area. Patient denies contact with known and/or suspected case of COVID-19. Ebola Screen: No symptoms or risks identified at this time. Initial Sepsis Screen: Does the patient meet any 2 criteria? No. Patient's initial sepsis screen is negative. Does the patient have a suspected source of infection? No. Patient's initial sepsis screen is negative. Risk Assessment: Do you want to hurt yourself or someone else? Patient reports no desire to harm self or others. Onset of symptoms was August 22, 2019 at 16:30. Care prior to arrival: Medication(s) given: IV initiated. 20 GA, in the right antecubital area. 17:11 Method Of Arrival: EMS: [facility] ls4 17:11 Acuity: HEBER 3 ls4 Triage Assessment: 17:11 General: Appears in no apparent distress. comfortable, Behavior is APPEARS INTOXICATED, ls4 SLURS WORDS, COOPERATIVE. Pain: Denies pain. Neuro: Level of Consciousness is awake, alert, obeys commands, Speech is slurred, PT ADMITS INTOXICATION . Cardiovascular: No deficits noted. Respiratory: Airway is patent Respiratory effort is even, unlabored, Respiratory pattern is regular, Denies cough, shortness of breath labored breathing, pain with respiration, pain with cough, pain with movement. GI: No deficits noted. No signs and/or symptoms were reported involving the gastrointestinal system. : No deficits noted. No signs and/or symptoms were reported regarding the genitourinary system. Derm: No deficits noted. No signs and/or symptoms reported regarding the dermatologic system. Musculoskeletal: No deficits noted. No signs and/or symptoms reported regarding the musculoskeletal system. Historical: - Allergies: 18:14 Ceclor; ls4 - Home Meds: 18:14 Clonazepam Oral as needed [Active]; levetiracetam Oral [Active]; ls4 - PMHx: 18:14 Anxiety; Seizures; ls4 - PSHx: 18:14 R knee sx; wisdom teeth removal; ls4 - Immunization history:: Adult Immunizations up to date. - Social history:: Smoking status: Patient denies any tobacco usage or history of. Patient uses alcohol. - Family history:: not pertinent. - Hospitalizations: : No recent hospitalization is reported. Screenin:30 Abuse screen: Denies threats or abuse. Denies injuries from another. Nutritional ls4 screening: No deficits noted. Tuberculosis screening: No symptoms or risk factors identified. Fall Risk None identified. Assessment: 17:30 Reassessment: Patient appears in no apparent distress at this time. Patient and/or ls4 family updated on plan of care and expected duration. Pain level reassessed. Patient is alert, oriented x 3, equal unlabored respirations, skin warm/dry/pink. 17:30 Cardiovascular: Denies chest pain, diaphoresis, fatigue, nausea, palpitations, ls4 vomiting, Parent/caregiver reports patient has had syncope. 18:30 Reassessment: Patient appears in no apparent distress at this time. Patient and/or ls4 family updated on plan of care and expected duration. Pain level reassessed. Patient is alert, oriented x 3, equal unlabored respirations, skin warm/dry/pink. General:. 19:30 Reassessment: Patient appears in no apparent distress at this time. Patient and/or ls4 family updated on plan of care and expected duration. Pain level reassessed. Patient is alert, oriented x 3, equal unlabored respirations, skin warm/dry/pink. Vital Signs: 17:11 BP 139 / 100; Pulse 120; Resp 14; Temp 98.4(O); Pulse Ox 99% on R/A; Pain 0/10; ls4 17:11 BP 118 / 89; Pulse 123; Resp 14; Pulse Ox 99% on R/A; Weight 81.65 kg; Height 5 ft. 10 ls4 in. (177.80 cm); Pain 0/10; 18:30 BP 118 / 89; Pulse 123; Resp 19; Pulse Ox 100% on R/A; Pain 0/10; ls4 19:30 BP 139 / 100; Pulse 130; Resp 20; Pulse Ox 100% on R/A; ls4 20:30 BP 122 / 92; Pulse 113; Resp 22; Temp 98.6; Pulse Ox 100% on R/A; Pain 0/10; ls4 17:11 Body Mass Index 25.83 (81.65 kg, 177.80 cm) ls4 ED Course: 17:11 Patient arrived in ED. am2 17:11 No provider procedures requiring assistance completed. Inserted saline lock: 18 gauge ls4 in right antecubital area, using aseptic technique. Blood collected. 17:11 Initial lab(s) drawn, by me, sent to lab. Patient maintains SpO2 saturation greater ls4 than 95% on room air. 17:13 Chuck Mccallum NP is PHCP. pm1 17:13 Ochoa Ruelas MD is Attending Physician. pm1 17:16 Vicky Crooks, DEBORAH is Primary Nurse. ls4 18:05 CT Head Brain wo Cont In Process Unspecified. EDMS 18:13 Triage completed. ls4 18:22 Arm band placed on left wrist. ls4 18:25 Meg Vides MD is Hospitalizing Provider. rn 18:45 XRAY Chest (1 view) In Process Unspecified. EDMS 20:15 Patient has correct armband on for positive identification. Bed in low position. Call ls4 light in reach. Side rails up X 1. Pulse ox on. Sitter at bedside. 20:30 Urine Dipstick--Ancillary (enter results) Sent. ls4 21:07 Notified the Hospitalist of PT DOES NOT WANT TO BE ADMITTED. DR France NOTIFIED. DR NEGRON ls4 SPOKE TO DR France AND DR France IS COMING TO SPAKE TO THE PATIENT. 21:10 IV discontinued, intact, PT REMOVED IV AND LEFT IT ON BED. ls4 Administered Medications: 18:25 Drug: NS 0.9% 1000 ml Route: IV; Rate: 1000 ml; Site: right antecubital; ls4 19:30 Follow up: IV Status: Completed infusion; IV Intake: 1000ml ls4 19:06 Drug: NS 0.9% 1000 ml Route: IV; Rate: 1000 ml; Site: right antecubital; ls4 20:06 Follow up: IV Status: Completed infusion; IV Intake: 1000ml ls4 Intake: 19:30 IV: 1000ml; Total: 1000ml. ls4 20:06 IV: 1000ml; Total: 2000ml. ls4 Outcome: 18:26 Decision to Hospitalize by Provider. rn 21:20 Patient left the ED. ls4 21:20 Eloped after seeing physician Time discovered patient gone: August 22, 2019 at 21:35 REPORT GIVEN TO FLOOR NURSE. WHILE PREPARING PAT FOR TRANSPORT, PT STATED THAT HE DID NOT WANT TO STAY OVER NIGHT AND HIS WAS GOING TO PICK HIM UP. DR Perez CALLED AND NOTIFIED. PT TOLD THAT WAS GOING TO SPEAK WITH HIM AND PT AGREED TO WAIT. PT DISCOVERED GONE FROM ED AT 2058 Signatures: Dispatcher [employer] EDMS Ochoa Ruelas MD MD rn Marinas, Patrick, LOKI HYDRO PLANT TECHNICIAN pm1 Greta Corona am2 Vicky Crooks RN RN ls4 Corrections: (The following items were deleted from the chart) 08/22 00:01 08/21 23:54 URINE DIPSTICK--ANCILLARY+U.LAB.BRZ drawn and sent. ls4 ls4 08/22 00:06 08/21 23:59 Reassessment: Patient appears in no apparent distress at this time. Patient ls4 and/or family updated on plan of care and expected duration. Pain level reassessed. Patient is alert, oriented x 3, equal unlabored respirations, skin warm/dry/pink. ls4 08/22 00:07 08/21 21:35 Patient left the ED. ls4 ls4 08/22 00:07 08/21 21:00 Eloped after seeing physician Time discovered patient gone: August 22, 2019 ls4 at 21:35 REPORT GIVEN TO FLOOR NURSE. WHILE PREPARING PAT FOR TRANSPORT, PT STATED THAT HE DID NOT WANT TO STAY OVER NIGHT AND HIS WAS GOING TO PICK HIM UP. DR Perez CALLED AND NOTIFIED. PT TOLD THAT WAS GOING TO SPEAK WITH HIM AND PT AGREED TO WAIT. PT DISCOVERED GONE FROM ED AT 2058 ls4
[2019-08-22] MEDS ORDERED: NA CHLORIDE 0.9% 1,000 ML ONE (18:33)
--- NOTE | 2019-08-22 18:57 | RAD REPORT ---
EXAM DESCRIPTION: Vitaliy Single View08/22/2019 6:45 pm CLINICAL HISTORY: sob COMPARISON: none FINDINGS: The lungs appear clear of acute infiltrate. The heart is normal size IMPRESSION: No acute abnormalities displayed
[2019-08-22] MEDS ORDERED: D5 0.9 NS 1,000 ML IV SCH (19:00)
[2019-08-22 20:50] LABS: Urine Blood NEGATIVE (NEG); Urine Glucose NEGATIVE (NEG); Urine Protein NEGATIVE (NEG); Urine Specific Gravity 1.025 (1.005-1.030); Urine pH 6.5 (5.0-7.0)
[2019-08-22 20:57] LABS: Barbiturates NEGATIVE (NEGATIVE); Benzodiazepines NEGATIVE (NEGATIVE); Cocaine NEGATIVE (NEGATIVE); METHAMPHETAM POSITIVE (NEGATIVE); Methadone NEGATIVE (NEGATIVE); Opiates NEGATIVE (NEGATIVE); Phencyclidine NEGATIVE (NEGATIVE); THC Cannibis NEGATIVE (NEGATIVE)
--- NOTE | 2019-08-22 22:27 | P.PN ---
Date of Service: 08/22/19 I was informed patient wants to leave against medical advice. ED nurse was informed to ask patient to wait for me to evaluate and discuss his concern I was informed on arrival to the ED patient would not wait for me and eloped.
[2019-08-22 22:32] VITALS: BP 118/89; TEMP 98.4; O2SAT 99
--- NOTE | 2019-08-23 18:08 | EKG ---
Test Date: 2019-08-22 Test Time: 17:18:31 Press Set Up Person: KYAW MEASUREMENT RESULTS: Intervals: Rate: 129 RI: 152 QRSD: 100 QT: 300 QTc: 439 [place]: P: 84 RI: 152 QRS: 88 T: -71 INTERPRETIVE STATEMENTS: Sinus tachycardia Marked ST abnormality, possible inferior subendocardial injury Abnormal ECG Compared to ECG 07/16/2017 13:30:17 ST (T wave) deviation now present Electronically Signed On 08-23-19 18:06:35 CDT by Bon Crawford
== END 2019-08-22 21:20 | disposition left against medical advice (07) ==
LOC: ER 17:11 → ERHOLD 18:39 → 2ND 20:22
PROVIDERS: ADMIT Internal Medicine; ATTEND Internal Medicine
DX: F10.129 Alcohol abuse with intoxication, unspecified (principal); Z53.29 Procedure and treatment not carried out because of patient's decision for other reasons; R56.9 Unspecified convulsions; F41.9 Anxiety disorder, unspecified; R94.31 Abnormal electrocardiogram [ECG] [EKG]; Z88.1 Allergy status to other antibiotic agents
CPT/HCPCS: 96361; 93005; 85025; 80048; 36415; 80320; 83735; 82550; 85610; 80076; 80307 ×8; 85730; 81003; 84484; 83690; 70450; 71045; 96360; 99285; J7030; G0378